=== PATIENT | female | born 1995 | race Caucasian/White ===

== ENCOUNTER 2023-05-25 19:56 | Emergency (ER) | payer SELFPAY ==
[2023-05-25 20:35] LABS: APPEARANCE,URINE SLT CLOUDY; BILIRUBIN,URINE NEGATIVE (NEGATIVE); COLOR,URINE YELLOW; GLUCOSE,URINE NEGATIVE (NEGATIVE); KETONES,URINE NEGATIVE (NEGATIVE); LEUKOCYTE ESTERASE,URINE NEGATIVE (NEGATIVE); NITRITE,URINE NEGATIVE (NEGATIVE); OCCULT BLOOD,URINE TRACE-INTACT (NEGATIVE); PROTEIN,URINE NEGATIVE (NEGATIVE)
[2023-05-25 20:42] LABS: AMORPHOUS SEDIMENT,URINE OCCASIONAL (NEGATIVE); BACTERIA,URINE FEW (NEGATIVE); EPITHELIAL CELLS,URINE OCCASIONAL (NONE-FEW); MUCUS,URINE FEW (NONE-MOD); SQUAMOUS EPITHELIAL CELLS,UR OCCASIONAL; WBC,URINE 0-5 (0-5/HPF)
[2023-05-25] MEDS ORDERED: Phenazopyridine 200 MG Tab PO ONE (20:52)
[2023-05-25] MEDS ORDERED: Cefdinir 300 MG Cap PO ONE (20:52)
== END 2023-05-25 21:07 | disposition home or self-care (01) ==
LOC: MW.ED 19:56
DX: N39.0 Urinary tract infection, site not specified (principal)
CPT/HCPCS: 81001; 81025; 99283; A9270

== ENCOUNTER 2023-07-05 16:56 | Emergency (ER) | payer MEDICAID ==
[2023-07-05 18:12] LABS: APPEARANCE,URINE CLOUDY; BILIRUBIN,URINE NEGATIVE (NEGATIVE); COLOR,URINE YELLOW; GLUCOSE,URINE NEGATIVE (NEGATIVE); KETONES,URINE NEGATIVE (NEGATIVE); LEUKOCYTE ESTERASE,URINE NEGATIVE (NEGATIVE); NITRITE,URINE NEGATIVE (NEGATIVE); OCCULT BLOOD,URINE NEGATIVE (NEGATIVE); PROTEIN,URINE NEGATIVE (NEGATIVE)
== END 2023-07-05 19:39 | disposition home or self-care (01) ==
LOC: MW.ED 16:56
DX: R30.0 Dysuria (principal)
CPT/HCPCS: 81003; 99282; 99283

== ENCOUNTER 2024-11-12 10:05 | Emergency (ER) | payer OTHER ==
[2024-11-12] MEDS: Acetaminophen 500 MG Tab PO ONE (10:50)
[2024-11-12] MEDS: Ibuprofen 600 MG Tab PO ONE (10:51)
[2024-11-12] MEDS: Lidocaine 2% Viscous Solution 15 ML UD PO ONE (10:51)
[2024-11-12] MEDS: Benzocaine 20% Topical Spray UD MUCMEM ONE (10:51)
[2024-11-12] MEDS: Amoxicillin/Clavulanate K 875-125 MG Tab PO ONE (11:03)
== END 2024-11-12 11:59 | disposition home or self-care (01) ==
LOC: MW.ED 10:05
DX: K04.7 Periapical abscess without sinus (principal); Z86.16 Personal history of COVID-19; Z75.8 Other problems related to medical facilities and other health care
CPT/HCPCS: 41800; 99283; A9270